=== PATIENT | male | born 1990 | race Two or more races ===

== ENCOUNTER 2022-09-21 22:17 | Emergency (ER) | payer SELFPAY ==
[~2022-09-21] VITALS: Ht 170.2 cm; Wt 111.4 kg
[2022-09-22] MEDS ORDERED: TETRACAINE HCL 0.5% OPTH(EYE) SOLN 4ML LEFTEYE ONE (08:15)
[2022-09-22] MEDS ORDERED: FLUORESCEIN SOD OPTH TEST STRIP LEFTEYE ONE (08:15)
[2022-09-22] MEDS ORDERED: IBUP600T28 PO ×3 (09:41→10:27)
[2022-09-22] MEDS ORDERED: ERY05OO OP ×3 (09:41→10:27)
[2022-09-22 09:45] VITALS: BP 113/53
== END 2022-09-22 11:18 | disposition home or self-care (01) ==
LOC: ER 22:17
DX: S05.02XA Injury of conjunctiva and corneal abrasion without foreign body, left eye, initial encounter (principal); H10.212 Acute toxic conjunctivitis, left eye; X58.XXXA Exposure to other specified factors, initial encounter; Y93.89 Activity, other specified; Y92.89 Other specified places as the place of occurrence of the external cause; Y99.8 Other external cause status